=== PATIENT | male | born 1975 | race Caucasian/White ===

== ENCOUNTER 2019-08-16 20:43 | Emergency (ER) | payer OTHER ==
[2019-08-16] MEDS ORDERED: Zofran 4 MG/2 ML VIAL IV ONE (21:06)
[2019-08-16] MEDS ORDERED: MORPHINE SULFATE 4 MG INJ IV ONE (21:06)
[2019-08-16] MEDS ORDERED: Pepcid 20 MG VIAL IV ONE ×2 (21:06→21:27)
[2019-08-16] MEDS ORDERED: BENADRYL 50 MG/ML IV ONE (21:06)
[2019-08-16] MEDS ORDERED: Sodium Chloride 0.9% 1000 ML 1,000 ML IV STA (21:06)
--- NOTE | 2019-08-16 21:15 | ERPHSYRPT ---
- History of Present Illness Time Seen by Provider: 08/16/19 21:10 Historian: patient, family Exam Limitations: no limitations Physician History: pt has hx month or longer of abd pain and awaiting UGI colonoscpy w/u. but has noted increased pain this week to this date - 20 pound wt loss over months and vomiting some; lower abd pain rad to back adn vice versa; no hx trauma , no fever , no CP or sobreath but is scheduled for stress test due to abn EKG; Timing/Duration: day(s) Activities at Onset: none Quality: sharpness, stabbing, throbbing Abdominal Pain Onset Location: RLQ, LLQ, flank Pain Radiation: flank, back Severity of Pain-Max: moderate Severity of Pain-Current: moderate Modifying Factors: Improves With: movement Associated Symptoms: back Previous symptoms: different symptoms, recently seen, recently treated Allergies/Adverse Reactions: Penicillins Allergy (Verified 08/16/19 20:57) promethazine HCl [From Phenergan] Allergy (Verified 08/16/19 20:57) cyclobenzaprine HCl [From Flexeril] Adverse Reaction (Mild, Verified 08/16/19 20 :57) just cant take naproxen Adverse Reaction (Mild, Verified 08/16/19 20:57) ulcer prochlorperazine edisylate [From Compazine] Adverse Reaction (Mild, Verified 20:57) nervousness prochlorperazine maleate [From Compazine] Adverse Reaction (Mild, Verified 08/15 20:57) nervousness Home Medications: Metoprolol Tartrate 25 mg [Lopressor 25MG Tab] 100 mg PO BID 07/04/14 [ History] Gabapentin 800 mg PO TID 06/21/15 [History] Dicyclomine HCl 20 mg [Bentyl 20 mg] 1 tab PO QID 08/16/19 [History] Hx Tetanus, Diphtheria Vaccination/Date Given: No Hx Influenza Vaccination/Date Given: No Hx Pneumococcal Vaccination/Date Given: No - Review of Systems Constitutional: No Fever, No Chills Eyes: No Symptoms Ears, Nose, & Throat: No Symptoms Respiratory: No Cough, No Dyspnea Cardiac: No Chest Pain, No Edema, No Syncope Abdominal/Gastrointestinal: Abdominal Pain, Nausea, Vomiting, No Diarrhea Genitourinary Symptoms: No Dysuria Musculoskeletal: Back Pain, No Neck Pain Skin: No Rash Neurological: No Dizziness, No Focal Weakness, No Sensory Changes Psychological: No Symptoms Endocrine: No Symptoms Hematologic/Lymphatic: No Symptoms Immunological/Allergic: No Symptoms All Other Systems: Reviewed and Negative - Past Medical History Pertinent Past Medical History: Yes Neurological History: Seizures, Other ENT History: No Pertinent History Cardiac History: Hypertension, Other Respiratory History: Asthma Endocrine Medical History: No Pertinent History Musculoskeletal History: Arthritis, Degenerative Disk Disease, Fractures, Osteoarthritis GI Medical History: Colitis, GERD, Ulcer History: No Pertinent History Psycho-Social History: Anxiety, Depression, Panic Disorder, Other Male Reproductive Disorders: No Pertinent History Other Medical History: chronic back pain. cardiomegaly. schizophrenia. - Past Surgical History Past Surgical History: Yes Neuro Surgical History: No Pertinent History Cardiac: No Pertinent History Respiratory: No Pertinent History Gastrointestinal: No Pertinent History Genitourinary: No Pertinent History Musculoskeletal: Orthopedic Surgery, Other Male Surgical History: No Pertinent History Other Surgical History: tonsils, right shoulder, thumbs - Social History Smoking Status: Current every day smoker How long have you smoked: "20 years" Exposure to second hand smoke: Yes Drug Use: none Patient Lives Alone: No Significant Family History: ,  - Nursing Vital Signs Nursing Vital Signs: Initial Vital Signs Temperature 98.0 F 08/16/19 21:00 Pulse Rate 68 08/16/19 21:00 Respiratory Rate 19 08/16/19 21:00 Blood Pressure 111/73 08/16/19 21:00 O2 Sat by Pulse Oximetry 99 08/16/19 21:00 Pain Scale Pain Intensity 4 - Physical Exam General Appearance: no apparent distress, alert Eye Exam: PERRL/EOMI, eyes nml inspection Ears, Nose, Throat Exam: normal ENT inspection, pharynx normal, moist mucous membranes Neck Exam: normal inspection, non-tender, supple, full range of motion Respiratory Exam: normal breath sounds, lungs clear, No respiratory distress Cardiovascular Exam: regular rate/rhythm, normal heart sounds Gastrointestinal/Abdomen Exam: soft, No tenderness, No mass Rectal Exam: deferred Back Exam: normal inspection, normal range of motion, No CVA tenderness, No vertebral tenderness Extremity Exam: normal inspection, normal range of motion, pelvis stable Neurologic Exam: alert, oriented x 3, cooperative, normal mood/affect, nml cerebellar function, sensation nml, No motor deficits Skin Exam: normal color, warm, dry - Course Nursing assessment & vital signs reviewed: Yes EKG Interpreted by Me: Sinus Rhythm, NORMAL AXIS, NORMAL INTERVALS, Non- specific ST Changes - CT Exams Abdomen/Pelvis CT Interpretation: Tele-radiologist Report, No appendicitis (stable L5 fracture ; hepatic steatosis; vascular Dx wihtout anuerysm or blockage noted per rad) Ordered Tests: Active Orders 24 hr Category Date Time Status EKG-ER Only STAT Care 08/16/19 21:06 Active IV Insertion STAT Care 08/16/19 21:06 Active NPO (ED) STAT Care 08/16/19 21:06 Active ABDOMEN AND PELVIS W CONTRAST [CT] Stat Exams 08/16/19 21:07 Taken AMYLASE Stat Lab 08/16/19 21:46 Completed CBC W DIFF Stat Lab 08/16/19 21:46 Completed CMP Stat Lab 08/16/19 21:46 Completed LIPASE Stat Lab 08/16/19 21:46 Completed Lactic Acid Stat Lab 08/16/19 21:39 Completed TROPONIN Q3H Lab 08/16/19 21:46 Completed TROPONIN Q3H Lab 08/17/19 00:37 Received TROPONIN Q3H Lab 08/17/19 03:15 Ordered TROPONIN Q3H Lab 08/17/19 06:15 Ordered TROPONIN Q3H Lab 08/17/19 09:15 Ordered UA W/RFX UR CULTURE Stat Lab 08/16/19 21:38 Completed Medication Summary Generic Name Dose Route Start Last Admin Trade Name Freq PRN Reason Stop Dose Admin Sodium Chloride 1,000 mls @ 999 mls/hr 08/17/19 00:21 08/17/19 00:22 Sodium Chloride 0.9% 1000 Ml IV 08/17/19 01:21 999 mls/hr .Q1H1M STA Administration Discontinued Medications Generic Name Dose Route Start Last Admin Trade Name Freq PRN Reason Stop Dose Admin Diphenhydramine HCl 25 mg 08/16/19 21:06 08/16/19 21:30 Benadryl 50 Mg/Ml IV 08/16/19 21:07 25 mg STAT ONE Administration Diphenhydramine HCl Confirm 08/16/19 21:26 Benadryl 50 Mg/Ml Administered 08/16/19 21:27 Dose 50 mg .ROUTE .STK-MED ONE Diphenhydramine HCl 25 mg 08/17/19 00:07 08/17/19 00:13 Benadryl 50 Mg/Ml IV 08/17/19 00:08 25 mg STAT ONE Administration Diphenhydramine HCl Confirm 08/17/19 00:10 Benadryl 50 Mg/Ml Administered 08/17/19 00:11 Dose 50 mg .ROUTE .STK-MED ONE Famotidine 20 mg 08/16/19 21:06 08/16/19 21:31 Pepcid 20 Mg Vial IV 08/16/19 21:07 20 mg STAT ONE Administration Famotidine Confirm 08/16/19 21:27 Pepcid 20 Mg Vial Administered 08/16/19 21:28 Dose 20 mg IV .STK-MED ONE Sodium Chloride 1,000 mls @ 999 mls/hr 08/16/19 21:06 08/16/19 22:44 Sodium Chloride 0.9% 1000 Ml IV 08/16/19 22:06 Infused .Q1H1M STA Infusion Sodium Chloride Confirm 08/16/19 21:27 Sodium Chloride 0.9% 1000 Ml Administered 08/16/19 21:28 Dose 1,000 mls @ ud .ROUTE .STK-MED ONE Sodium Chloride Confirm 08/17/19 00:19 Sodium Chloride 0.9% 1000 Ml Administered 08/17/19 00:20 Dose 1,000 mls @ ud .ROUTE .STK-MED ONE Morphine Sulfate 4 mg 08/16/19 21:06 08/16/19 21:31 Morphine Sulfate 4 Mg Inj IV 08/16/19 21:07 4 mg STAT ONE Administration Morphine Sulfate Confirm 08/16/19 21:27 Morphine Sulfate 4 Mg Inj Administered 08/16/19 21:28 Dose 4 mg .ROUTE .STK-MED ONE Morphine Sulfate 10 mg 08/17/19 00:06 08/17/19 00:12 Morphine Sulfate 10 Mg/Ml IV 08/17/19 00:07 10 mg STAT ONE Administration Morphine Sulfate Confirm 08/17/19 00:10 Morphine Sulfate 10 Mg/Ml Administered 08/17/19 00:11 Dose 10 mg .ROUTE .STK-MED ONE Ondansetron HCl 4 mg 08/16/19 21:06 08/16/19 21:28 Zofran 4 Mg/2 Ml Vial IV 08/16/19 21:07 4 mg STAT ONE Administration Ondansetron HCl Confirm 08/16/19 21:26 Zofran 4 Mg/2 Ml Vial Administered 08/16/19 21:27 Dose 4 mg .ROUTE .STK-MED ONE Ondansetron HCl 4 mg 08/17/19 00:09 08/17/19 00:23 Zofran 4 Mg/2 Ml Vial IV 08/17/19 00:10 4 mg STAT ONE Administration Ondansetron HCl Confirm 08/17/19 00:21 Zofran 4 Mg/2 Ml Vial Administered 08/17/19 00:22 Dose 4 mg .ROUTE .STK-MED ONE Promethazine HCl 50 mg 08/17/19 00:07 08/17/19 00:38 Phenergan 25 Mg Inj IM 08/17/19 00:08 Not Given STAT ONE Lab/Rad Data: Laboratory Result Diagrams 08/16/19 21:46 08/16/19 21:46 Laboratory Results 08/16/19 08/16/19 08/16/19 Range/Units 21:46 21:46 21:46 WBC 9.1 (4.0-10.5) K/mm3 RBC 4.75 (4.1-5.6) M/mm3 Hgb 15.2 (12.5-18.0) gm/dl Hct 43.8 (42-50) % MCV 92.2 (78-100) fl MCH 32.0 (26-32) pg MCHC 34.7 (32-36) g/dl RDW 13.3 (11.5-14.0) % Plt Count 219 (150-450) K/mm3 MPV 8.6 (7.5-11.0) fl Gran % 57.2 (36.0-66.0) % Eos # (Auto) 0.14 (0-0.5) Absolute Lymphs (auto) 3.18 (1.0-4.6) Absolute Monos (auto) 0.54 (0.0-1.3) Lymphocytes % 35.1 (24.0-44.0) % Monocytes % 6.0 (0.0-12.0) % Eosinophils % 1.5 (0.00-5.0) % Basophils % 0.2 (0.0-0.4) % Absolute Granulocytes 5.19 (1.4-6.9) Basophils # 0.02 (0-0.4) Sodium 142 (137-145) mmol/L Potassium 3.8 (3.5-5.1) mmol/L Chloride 106 (98-107) mmol/L Carbon Dioxide 28 (22-30) mmol/L Anion Gap 11.9 (5-15) MEQ/L BUN 8 L (9-20) mg/dL Creatinine 0.68 (0.66-1.25) mg/dL Estimated GFR > 60.0 ML/MIN Glucose 82 (74-106) mg/dL Lactic Acid (0.4-2.0) Calcium 9.6 (8.4-10.2) mg/dL Total Bilirubin 0.40 (0.2-1.3) mg/dL AST 29 (17-59) U/L ALT 22 (0-50) U/L Alkaline Phosphatase 84 (38-126) U/L Troponin I < 0.012 (0.000-0.034) ng/mL Serum Total Protein 7.8 (6.3-8.2) g/dL Albumin 4.5 (3.5-5.0) g/dL Amylase 89 (30-110) U/L Lipase 107 (23-300) U/L Urine Color (YELLOW) Urine Appearance (CLEAR) Urine pH (5-6) Ur Specific [place] (1.005-1.025) Urine Protein (Negative) Urine Ketones (NEGATIVE) Urine Blood (0-5) Rip/ul Urine Nitrite (NEGATIVE) Urine Bilirubin (NEGATIVE) Urine Urobilinogen (0-1) mg/dL Ur Leukocyte Esterase (NEGATIVE) Urine WBC (Auto) (0-5) /HPF Urine RBC (Auto) (0-2) /HPF U Epithel Cells (Auto) (FEW) /HPF Urine Bacteria (Auto) (NEGATIVE) /HPF Urine Culture Reflexed (NO) Urine Glucose (NEGATIVE) mg/dL 08/16/19 08/16/19 Range/Units 21:39 21:38 WBC (4.0-10.5) K/mm3 RBC (4.1-5.6) M/mm3 Hgb (12.5-18.0) gm/dl Hct (42-50) % MCV (78-100) fl MCH (26-32) pg MCHC (32-36) g/dl RDW (11.5-14.0) % Plt Count (150-450) K/mm3 MPV (7.5-11.0) fl Gran % (36.0-66.0) % Eos # (Auto) (0-0.5) Absolute Lymphs (auto) (1.0-4.6) Absolute Monos (auto) (0.0-1.3) Lymphocytes % (24.0-44.0) % Monocytes % (0.0-12.0) % Eosinophils % (0.00-5.0) % Basophils % (0.0-0.4) % Absolute Granulocytes (1.4-6.9) Basophils # (0-0.4) Sodium (137-145) mmol/L Potassium (3.5-5.1) mmol/L Chloride (98-107) mmol/L Carbon Dioxide (22-30) mmol/L Anion Gap (5-15) MEQ/L BUN (9-20) mg/dL Creatinine (0.66-1.25) mg/dL Estimated GFR ML/MIN Glucose (74-106) mg/dL Lactic Acid 1.1 (0.4-2.0) Calcium (8.4-10.2) mg/dL Total Bilirubin (0.2-1.3) mg/dL AST (17-59) U/L ALT (0-50) U/L Alkaline Phosphatase (38-126) U/L Troponin I (0.000-0.034) ng/mL Serum Total Protein (6.3-8.2) g/dL Albumin (3.5-5.0) g/dL Amylase (30-110) U/L Lipase (23-300) U/L Urine Color YELLOW (YELLOW) Urine Appearance CLEAR (CLEAR) Urine pH 6.0 (5-6) Ur Specific [place] 1.012 (1.005-1.025) Urine Protein NEGATIVE (Negative) Urine Ketones NEGATIVE (NEGATIVE) Urine Blood NEGATIVE (0-5) Rip/ul Urine Nitrite NEGATIVE (NEGATIVE) Urine Bilirubin NEGATIVE (NEGATIVE) Urine Urobilinogen NEGATIVE (0-1) mg/dL Ur Leukocyte Esterase NEGATIVE (NEGATIVE) Urine WBC (Auto) NONE (0-5) /HPF Urine RBC (Auto) NONE (0-2) /HPF U Epithel Cells (Auto) NONE (FEW) /HPF Urine Bacteria (Auto) NONE (NEGATIVE) /HPF Urine Culture Reflexed NO (NO) Urine Glucose NEGATIVE (NEGATIVE) mg/dL - Progress Progress: improved, re-examined Progress Note: 08/17/19 01:12 pt pain much improved now and he is advised to see his PCP this am for further pain management and futher abd workup since undetected pathology may still be developing including cardiovascular and abdominal pathology- and thus the need for f/u ; [facility] of testing performed and has the capacity to make this choice; Counseled pt/family regarding: lab results, diagnosis, need for follow-up, rad results - Departure Departure Disposition: Home Clinical Impression: Hepatomegaly, Abdominal pain of unknown cause, chronic L5 compression Fx, Calcified granuloma of lung, Peripheral vascular disease Condition: Good Critical Care Time: No Referrals: KELECHI VICTOR [Primary Care Provider] - Instructions: Acute Abdomen (Belly Pain), Adult (DC), Peripheral Artery Disease and Claudication, Vertebral Compression Fracture (DC), Nonalcoholic Fatty Liver Disease (DC)
[2019-08-16] MEDS ORDERED: Zofran 4 MG/2 ML VIAL ONE (21:26)
[2019-08-16] MEDS ORDERED: BENADRYL 50 MG/ML ONE (21:26)
[2019-08-16] MEDS ORDERED: MORPHINE SULFATE 4 MG INJ ONE (21:27)
[2019-08-16] MEDS ORDERED: Sodium Chloride 0.9% 1000 ML 1,000 ML ONE (21:27)
[2019-08-16 21:48] LABS: Absolute Neutrophil Ct (ANC) 5.19 (1.4-6.9); BASOPHIL % 0.2 % (0.0-0.4); Basophil (Absolute #) 0.02 (0-0.4); Eosinophil % 1.5 % (0.00-5.0); Eosinophil (Absolute #) 0.14 (0-0.5); Hematocrit 43.8 % (42-50); Hemoglobin 15.2 gm/dl (12.5-18.0); Lymphocyte (Absolute #) 3.18 (1.0-4.6); Lymphocytes % 35.1 % (24.0-44.0); Mean Cell Volume 92.2 fl (78-100); Mean Corpuscular Hgb Concent. 34.7 g/dl (32-36); Mean Platelet Volume 8.6 fl (7.5-11.0); Monocyte (Absolute #) 0.54 (0.0-1.3); Neutrophil % 57.2 % (36.0-66.0); Platelet Count 219 K/mm3 (150-450); Red Blood Count 4.75 M/mm3 (4.1-5.6); Red Cell Distribution Width 13.3 % (11.5-14.0); White Blood Count 9.1 K/mm3 (4.0-10.5)
[2019-08-16 21:55] LABS: Appearance CLEAR (CLEAR); Bilirubin NEGATIVE (NEGATIVE); Blood NEGATIVE Ery/ul (0-5); Glucose NEGATIVE (NEGATIVE); Ketones NEGATIVE (NEGATIVE); Leukocyte Esterase NEGATIVE (NEGATIVE); Nitrite NEGATIVE (NEGATIVE); Protein,Urine Dip NEGATIVE (Negative); Specific Gravity 1.012 (1.005-1.025); Urobilinogen NEGATIVE mg/dL (0-1)
[2019-08-16 22:07] LABS: ALBUMIN 4.5 g/dL (3.5-5.0); ALKALINE PHOSPHATASE 84 U/L (38-126); AMYLASE 89 U/L (30-110); ANION GAP 11.9 MEQ/L (5-15); BLOOD UREA NITROGEN 8 mg/dL (9-20); CHLORIDE 106 mmol/L (98-107); Calcium 9.6 mg/dL (8.4-10.2); Carbon Dioxide 28 mmol/L (22-30); Creatinine 1 0.68 mg/dL (0.66-1.25); Glucose 82 mg/dL (74-106); LIPASE 107 U/L (23-300); Potassium 3.8 mmol/L (3.5-5.1); SGOT/AST 29 U/L (17-59); SGPT/ALT 22 U/L (0-50); SODIUM 142 mmol/L (137-145); Total Protein 7.8 g/dL (6.3-8.2)
[2019-08-16 23:58] VITALS: O2SAT 98
[2019-08-17] MEDS ORDERED: MORPHINE SULFATE 10 MG/ML IV ONE (00:06)
[2019-08-17] MEDS ORDERED: Phenergan 25 MG INJ IM ONE (00:07)
[2019-08-17] MEDS ORDERED: BENADRYL 50 MG/ML IV ONE (00:07)
[2019-08-17] MEDS ORDERED: Zofran 4 MG/2 ML VIAL IV ONE (00:09)
[2019-08-17] MEDS ORDERED: MORPHINE SULFATE 10 MG/ML ONE (00:10)
[2019-08-17] MEDS ORDERED: BENADRYL 50 MG/ML ONE (00:10)
[2019-08-17] MEDS ORDERED: Sodium Chloride 0.9% 1000 ML 1,000 ML ONE (00:19)
[2019-08-17] MEDS ORDERED: Sodium Chloride 0.9% 1000 ML 1,000 ML IV STA (00:21)
[2019-08-17] MEDS ORDERED: Zofran 4 MG/2 ML VIAL ONE (00:21)
[2019-08-17 01:00] VITALS: BP 125/81; PULSE 57
--- NOTE | 2019-08-17 08:43 | XRAY ---
Indication: Bilateral back/flank pain. Multiple contiguous axial images obtained through the abdomen and pelvis using 80 cc Isovue 370 contrast only. Comparison: December 15, 2012. Lung bases demonstrates bilateral dependent atelectasis and right middle lobe calcified granuloma. No infiltrate or effusion. Heart is not enlarged. Noncontrasted stomach and bowel loops appear nonobstructed. Normal appendix. No free fluid/air. Mild fatty liver without focal solid/cystic mass. Remaining liver, gallbladder, pancreas, spleen, adrenal glands, kidneys, ureters, and bladder appear unremarkable. Aorta is normal in course and caliber. No AAA or pathologic retroperitoneal lymphadenopathy Osseous structures intact again with L5 Schmorl node. Impression: 1. Fatty liver and right middle lobe calcified granuloma. 2. Remaining CT abdomen/pelvis with contrast exam is negative. Comment: Preliminary interpretation was made by [facility]. No critical discrepancy.
== END 2019-08-17 01:42 | disposition home or self-care (01) ==
LOC: ED 20:43
DX: R16.0 Hepatomegaly, not elsewhere classified (principal); M48.56XA Collapsed vertebra, not elsewhere classified, lumbar region, initial encounter for fracture; J84.10 Pulmonary fibrosis, unspecified; I73.9 Peripheral vascular disease, unspecified; R10.31 Right lower quadrant pain; R10.32 Left lower quadrant pain; R10.9 Unspecified abdominal pain; Z79.899 Other long term (current) drug therapy; R11.2 Nausea with vomiting, unspecified; I10 Essential (primary) hypertension; Z72.0 Tobacco use
CPT/HCPCS: 36000; 36415; 74177; 80053; 81001; 82150; 83605; 83690; 84484; 85025; 93005; 96360; 96361; 96374; 96375; 96376; 99285; J1200; J2270; J2405

== ENCOUNTER 2020-02-06 17:40 | Emergency (ER) | payer OTHER ==
[2020-02-06] MEDS ORDERED: MORPHINE SULFATE 4 MG INJ IM ONE ×2 (18:11→19:25)
[2020-02-06] MEDS ORDERED: MORPHINE SULFATE 4 MG INJ ONE ×2 (18:14→19:33)
--- NOTE | 2020-02-06 18:15 | ERPHSYRPT ---
- History of Present Illness Source: patient Exam Limitations: no limitations Patient Subjective Stated Complaint: Pt c/o pain to right shoulder for past week with acutely worse last night. States cant raise arm above head. Stabbing pain with movement. Has had two surgeries on that shoulder-last 2006. Triage Nursing Assessment: Right radial pulse present and strong. Cap refill <3sec. Surgery scar to anterior right shoulder. No deformity,swelling, or bruising present. Occurred: yesterday Method of Injury: unknown Quality: sharpness, stabbing Severity of Pain-Max: severe Severity of Pain-Current: severe Extremities Pain Location: shoulder: right Modifying Factors: Improves With: immobilization, movement Associated Symptoms: none Hx Tetanus, Diphtheria Vaccination/Date Given: No Hx Influenza Vaccination/Date Given: No Hx Pneumococcal Vaccination/Date Given: No <LISSA FRENCH - Last Filed: 02/06/20 18:11> <MIGUEL DEE - Last Filed: 02/06/20 19:29> - History of Present Illness Time Seen by Provider: 02/06/20 18:00 Physician History: 45 years old male with a history of multiple right shoulder surgeries in the past presented in the ER with worsening shoulder pain since last night. Patient described it as 10/10 intensity sharp pain aggravated with movements of right shoulder and partial relief with being still and holding right upper extremity closer to the chest. Patient report he feels popping sound with movements of shoulder. Denies any fall or trauma or twisting movements. No swelling of shoulder. Reports pain similar to previous episodes needing surgical intervention. (LISSA FRENCH) Allergies/Adverse Reactions: Penicillins Allergy (Verified 02/06/20 18:10) promethazine HCl [From Phenergan] Allergy (Verified 02/06/20 18:10) cyclobenzaprine HCl [From Flexeril] Adverse Reaction (Mild, Verified 02/06/20 18:10) just cant take naproxen Adverse Reaction (Mild, Verified 02/06/20 18:10) ulcer prochlorperazine edisylate [From Compazine] Adverse Reaction (Mild, Verified 02/06/20 18:10) nervousness prochlorperazine maleate [From Compazine] Adverse Reaction (Mild, Verified 02/06/20 18:10) nervousness Home Medications: Metoprolol Tartrate 25 mg [Lopressor 25MG Tab] 100 mg PO BID 07/04/14 [History] Gabapentin 800 mg PO TID 06/21/15 [History] Dicyclomine HCl 20 mg [Bentyl 20 mg] 1 tab PO QID 08/16/19 [History] Oxycodone HCl 5 mg PO BID 02/06/20 [History] Travel Risk - International Travel Have you traveled outside of the country in past 3 weeks: No - Coronavirus Screening Are you exhibiting any of the following symptoms?: No Close contact with a COVID-19 positive Pt in past 14-21 Days: No <LISSA FRENCH - Last Filed: 02/06/20 18:11> - Review of Systems Constitutional: No Symptoms Eyes: No Symptoms Ears, Nose, & Throat: No Symptoms Respiratory: No Symptoms Cardiac: No Symptoms Abdominal/Gastrointestinal: No Symptoms Genitourinary Symptoms: No Symptoms Musculoskeletal: Arthralgias, Back Pain, Joint Pain Skin: No Symptoms Neurological: No Symptoms Psychological: No Symptoms Endocrine: No Symptoms Hematologic/Lymphatic: No Symptoms <LISSA FRENCH - Last Filed: 02/06/20 18:11> - Past Medical History Pertinent Past Medical History: Yes Neurological History: Seizures, Other ENT History: No Pertinent History Cardiac History: Hypertension, Other Respiratory History: Asthma Endocrine Medical History: No Pertinent History Musculoskeletal History: Arthritis, Degenerative Disk Disease, Fractures, Osteoarthritis GI Medical History: Colitis, GERD, Ulcer History: No Pertinent History Psycho-Social History: Anxiety, Depression, Panic Disorder, Other Male Reproductive Disorders: No Pertinent History Other Medical History: chronic back pain. cardiomegaly. schizophrenia. - Past Surgical History Past Surgical History: Yes Neuro Surgical History: No Pertinent History Cardiac: No Pertinent History Respiratory: No Pertinent History Gastrointestinal: No Pertinent History Genitourinary: No Pertinent History Musculoskeletal: Orthopedic Surgery, Other Male Surgical History: No Pertinent History Other Surgical History: tonsils, right shoulder, thumbs, left leg - Social History Smoking Status: Current every day smoker How long have you smoked: "20 years" Exposure to second hand smoke: Yes Drug Use: none Patient Lives Alone: No Significant Family History: ,  <LISSA FRENCH - Last Filed: 02/06/20 18:11> - Physical Exam General Appearance: no apparent distress, alert Eyes, Ears, Nose, Throat Exam: normal ENT inspection Neck Exam: normal inspection, non-tender, supple, full range of motion Cardiovascular/Respiratory Exam: chest non-tender, normal breath sounds, regular rate/rhythm Back Exam: normal inspection, normal range of motion Shoulder Exam: limited ROM (Right shoulder with reproducible pain with movements, cannot lift above shoulder line. Distal neurovascular well intact.), pain Elbow/Forearm Exam: normal inspection Wrist Exam: normal inspection Hand Exam: normal inspection Neuro/Tendon Exam: normal sensation Mental Status Exam: alert, oriented x 3, cooperative, agitated Skin Exam: normal color SpO2 Interpretation: normal O2 Delivery: Room Air <LISSA FRENCH - Last Filed: 02/06/20 18:11> - Nursing Vital Signs Nursing Vital Signs: Initial Vital Signs Temperature 96.3 F 02/06/20 17:55 Pulse Rate 64 02/06/20 17:55 Respiratory Rate 20 02/06/20 17:55 Blood Pressure 111/69 02/06/20 17:55 Pain Scale Pain Intensity 10 - Course Nursing assessment & vital signs reviewed: Yes <MIGUEL DEE - Last Filed: 02/06/20 19:29> Ordered Tests: Active Orders 24 hr Category Date Time Status Sling Application STAT Care 02/06/20 19:27 Ordered SHOULDER Stat Exams 02/06/20 18:54 Taken Medication Summary Discontinued Medications Generic Name Dose Route Start Last Admin Trade Name Freq PRN Reason Stop Dose Admin Lorazepam 1 mg 02/06/20 19:26 Ativan 2 Mg/1 Ml Vial IM 02/06/20 19:27 STAT ONE Morphine Sulfate 4 mg 02/06/20 18:11 02/06/20 18:17 Morphine Sulfate 4 Mg Inj IM 02/06/20 18:12 4 mg STAT ONE Administration Morphine Sulfate Confirm 02/06/20 18:14 Morphine Sulfate 4 Mg Inj Administered 02/06/20 18:15 Dose 4 mg .ROUTE .STK-MED ONE Morphine Sulfate 4 mg 02/06/20 19:25 Morphine Sulfate 4 Mg Inj IM 02/06/20 19:26 STAT ONE Ondansetron HCl 4 mg 02/06/20 18:55 02/06/20 18:58 Zofran Odt 4 Mg PO 02/06/20 18:56 4 mg STAT ONE Administration Ondansetron HCl Confirm 02/06/20 18:56 Zofran Odt 4 Mg Administered 02/06/20 18:57 Dose 4 mg .ROUTE .STK-MED ONE - Progress Progress: improved, pain not gone completely, re-examined Counseled pt/family regarding: diagnosis, need for follow-up, rad results <MIGUEL DEE - Last Filed: 02/06/20 19:29> - Progress Progress Note: 02/06/20 19:24 X-ray of the right shoulder reveals no evidence of acute fracture or dislocation. (MIGUEL DEE) <LISSA FRENCH - Last Filed: 02/06/20 18:11> - Departure Departure Disposition: Home Critical Care Time: No <MIGUEL DEE - Last Filed: 02/06/20 19:29> - Departure Clinical Impression: Right shoulder pain Condition: Stable Referrals: KELECHI VICTOR [Primary Care Provider] - Additional Instructions: Take your medication as prescribed. Follow-up with your pain specialist, your primary care physician and/or your orthopedic surgeon for further control of your pain Prescriptions: Carisoprodol 350 mg [Soma 350 mg] 350 mg PO Q8H PRN PRN #10 tablet PRN Reason: Muscle Spasms
[2020-02-06] MEDS ORDERED: ZOFRAN ODT 4 MG PO ONE (18:55)
[2020-02-06] MEDS ORDERED: ZOFRAN ODT 4 MG ONE (18:56)
[2020-02-06] MEDS ORDERED: Ativan 2 MG/1 ML VIAL IM ONE (19:26)
[2020-02-06] MEDS ORDERED: Ativan 2 MG/1 ML VIAL ONE (19:33)
[2020-02-06 20:12] VITALS: BP 96/64; PULSE 77; O2SAT 99
--- NOTE | 2020-02-06 21:04 | XRAY ---
Indication: Pain. History of chronic dislocation. Comparison: March 12, 2014. 3 view right shoulder again demonstrates small osteophyte emanating from the humeral neck and a few right lung calcified granulomas. No new/acute bony, articular, or soft tissue abnormalities.
== END 2020-02-06 20:00 | disposition home or self-care (01) ==
LOC: ED 17:40
DX: M25.511 Pain in right shoulder (principal)
CPT/HCPCS: 73030; 96372; 99284; J2060; J2270; Q0162

== ENCOUNTER 2020-07-09 13:27 | Emergency (ER) | payer OTHER ==
[2020-07-09] MEDS ORDERED: TORAdol 30 mg Injection IM ONE (13:57)
[2020-07-09] MEDS ORDERED: Norflex 60 MG/2 ML IM ONE (14:02)
[2020-07-09] MEDS ORDERED: TORAdol 30 mg Injection ONE (14:05)
[2020-07-09] MEDS ORDERED: Norflex 60 MG/2 ML ONE (14:05)
--- NOTE | 2020-07-09 14:06 | ERPHSYRPT ---
- History of Present Illness Time Seen by Provider: 07/09/20 14:02 Source: patient Exam Limitations: no limitations Patient Subjective Stated Complaint: Pt states that for the past 3 weeks his left forearm from his elbow down hurts Triage Nursing Assessment: Pt was brought to the ER by his brother, yaniv diggs, denies injury to arm, denies repetive movment, pulses normal, rates pain 9/10, no visible injuries, skin n/w/d, no difficulties with strength Physician History: Pt states that for the past 3 weeks his left forearm from his elbow down hurts. No history of any injury or fall patient has a history of narcotic drug abuse in the past. Occurred: last week Method of Injury: unknown Quality: cramping Severity of Pain-Max: mild Severity of Pain-Current: mild Extremities Pain Location: forearm: left Allergies/Adverse Reactions: Penicillins Allergy (Verified 07/09/20 13:39) promethazine HCl [From Phenergan] Allergy (Verified 07/09/20 13:39) cyclobenzaprine HCl [From Flexeril] Adverse Reaction (Mild, Verified 07/09/20 13:39) just cant take naproxen Adverse Reaction (Mild, Verified 07/09/20 13:39) ulcer prochlorperazine edisylate [From Compazine] Adverse Reaction (Mild, Verified 07/09/20 13:39) nervousness prochlorperazine maleate [From Compazine] Adverse Reaction (Mild, Verified 07/09/20 13:39) nervousness Home Medications: Metoprolol Tartrate 25 mg [Lopressor 25MG Tab] 100 mg PO BID 07/04/14 [History] Gabapentin 800 mg PO QID 06/21/15 [History] Dicyclomine HCl 20 mg [Bentyl 20 mg] 1 tab PO QID 08/16/19 [History] Oxycodone HCl 10 mg PO BID 02/06/20 [History] Clopidogrel Bisulfate 75 mg [PLAVIX 75 MG Tablet] 75 mg PO DAILY 07/09/20 [History] Hydroxyzine HCl 25 mg [Atarax 25 mg] 1 - 2 tab PO Q6H PRN 07/09/20 [History] OLANZapine [Olanzapine] 10 mg PO HS 07/09/20 [History] Venlafaxine HCl ER 75 mg [Effexor XR 75 MG] 225 mg PO DAILY 07/09/20 [History] Hx Tetanus, Diphtheria Vaccination/Date Given: No Hx Influenza Vaccination/Date Given: No Hx Pneumococcal Vaccination/Date Given: No Travel Risk - International Travel Have you traveled outside of the country in past 3 weeks: No - Coronavirus Screening Are you exhibiting any of the following symptoms?: No Close contact with a COVID-19 positive Pt in past 14-21 Days: No - Review of Systems Constitutional: No Symptoms Eyes: No Symptoms Ears, Nose, & Throat: No Symptoms Respiratory: No Symptoms Cardiac: No Symptoms Abdominal/Gastrointestinal: No Symptoms Genitourinary Symptoms: No Symptoms Musculoskeletal: Other (left forearm pain. ), No Fall - Past Medical History Pertinent Past Medical History: Yes Neurological History: Seizures ENT History: No Pertinent History Cardiac History: High Cholesterol, Hypertension Respiratory History: Asthma, COPD Endocrine Medical History: Other Musculoskeletal History: Degenerative Disk Disease, Osteoarthritis GI Medical History: Colitis, GERD, Ulcer History: No Pertinent History Psycho-Social History: Anxiety, Depression, Panic Disorder, Other Male Reproductive Disorders: No Pertinent History Other Medical History: FATTY LIVER DISEASE, SCHIZOPHRENIA, DEPRESSION, ANXIETY. SX HX 2 SURGERIES RIGHT SHOULDER AND MULTIPLE DISLOCATIONS RIGHT SHOULDER. MOST RECENT SURGERY 2006. HX OF 2 SURGERIES LEFT LEG DUE TO BLOOD CLOTS (HAS CADAVER VEIN) - Past Surgical History Past Surgical History: Yes Neuro Surgical History: No Pertinent History Cardiac: No Pertinent History Respiratory: No Pertinent History Gastrointestinal: No Pertinent History Genitourinary: No Pertinent History Musculoskeletal: Orthopedic Surgery, Other Male Surgical History: No Pertinent History Other Surgical History: tonsils, right shoulder, thumbs, left leg - Social History Smoking Status: Current every day smoker How long have you smoked: "20 years" Exposure to second hand smoke: Yes Drug Use: none Patient Lives Alone: No Significant Family History: ,  - Nursing Vital Signs Nursing Vital Signs: Initial Vital Signs Temperature 98.2 F 07/09/20 13:30 Pulse Rate 73 07/09/20 13:30 Blood Pressure 124/84 07/09/20 13:30 O2 Sat by Pulse Oximetry 99 07/09/20 13:30 Pain Scale Pain Intensity 8 - Physical Exam General Appearance: no apparent distress Eyes, Ears, Nose, Throat Exam: normal ENT inspection Neck Exam: normal inspection Cardiovascular/Respiratory Exam: chest non-tender Abdominal Exam: non-tender Back Exam: normal inspection Shoulder Exam: normal inspection Elbow/Forearm Exam: no evidence of injury, normal ROM, pain, soft tissue tenderness, No abrasions, No asymmetry, No bone tenderness, No deformity, No ecchymosis, No limited ROM, No swelling Wrist Exam: normal inspection Hand Exam: normal inspection SpO2: 99 - Course Nursing assessment & vital signs reviewed: Yes Ordered Tests: Medication Summary Discontinued Medications Generic Name Dose Route Start Last Admin Trade Name Alis PRN Reason Stop Dose Admin Ketorolac Tromethamine 60 mg 07/09/20 13:57 07/09/20 14:06 Toradol 30 Mg Injection IM 07/09/20 13:58 60 mg STAT ONE Administration Ketorolac Tromethamine Confirm 07/09/20 14:05 Toradol 30 Mg Injection Administered 07/09/20 14:06 Dose 60 mg .ROUTE .STK-MED ONE Orphenadrine Citrate 60 mg 07/09/20 14:02 07/09/20 14:07 Norflex 60 Mg/2 Ml IM 07/09/20 14:03 60 mg STAT ONE Administration Orphenadrine Citrate Confirm 07/09/20 14:05 Norflex 60 Mg/2 Ml Administered 07/09/20 14:06 Dose 60 mg .ROUTE .STK-MED ONE - Progress Progress: improved, pain not gone completely Counseled pt/family regarding: diagnosis, need for follow-up - Departure Departure Disposition: Home Clinical Impression: Left forearm pain Condition: Stable Critical Care Time: No Referrals: CRISTY CALVO MD [Primary Care Provider] - Follow Up with PCP/3 days Additional Instructions: Discharge/Care Plan LAKHWINDER BARGER was seen on 07/09/20 in the Emergency Room. The patient was counseled regarding Diagnosis,Lab results, Imaging studies, need for follow up and when to return to the Emergency Room. Prescriptions given: Discharge Note I have spoken with the patient and/or caregivers. I have explained the patient's condition, diagnosis and treatment plan based on the information available to me at this time. I have answered the patient's and/or caregiver's questions and addressed any concerns. The patient and/or caregivers have as good understanding of the patient's diagnosis, condition and treatment plan as can be expected at this point. The vital signs have been stable. The patient's condition is stable and appropriate for discharge from the emergency department. The patient will pursue further outpatient evaluation with the primary care physician or other designated or consulting physician as outlined in the discharge instructions. The patient and/or caregivers are agreeable to this plan of care and follow-up instructions have been explained in detail. The patient and/or caregivers have received these instruction. The patient/and or caregivers are aware that any significant change in condition or worsening of symptoms should prompt an immediate return to this or the closest emergency department or call 911. LAKHWINDER BARGER was seen on 07/09/20 n the Emergency Room. At that time you were treated for an emergent condition, during your visit Laboratory, Radiology and/or other procedures may have been ordered. It is very important that you follow-up with your Primary Care Physician CRISTY CALVO within the next 24-48 hours to review your Emergency Room visit and the final results of testing that was ordered. Some test results such as Urine Cultures, Blood Cultures, and other cultures if ordered will not be finalized for 24-48 hours. If you do not have a Primary Care Provider please call the medical records department at [phone] to obtain a copy of your results or you may sign into our patient portal to obtain these results by visiting us @ [email or web address] and completing the following steps: 1. Click on the Patient Portal link 2. Click the Patient Self Enrollment Link to complete the enrollment form and entering your 3. Once the enrollment form is completed you will receive an email with a temporary ID and password at the email address you provided. 4. Next choose a user name and password. Your user name must be at least 4 characters long and your password must be at least 4 characters long. 5. Choose a security question from the list and provide your answer to the question. If you already have signed into the Health Portal you may access your Health Care Information 24/12 by the following steps: 1. Login to our website @ [email or web address] 2. Enter your original user name and password. FAQS The [facility] Health Portal is an online tool that contains your Lab Results, Radiology Reports, Visit History, Discharge Instructions and Health Summary Lab and Radiology Results will not be available for 72 hours on the portal. The Portal is a secure site, passwords are encryted and URLs are re-written so they cannot be copied and pasted. You and authorized family members are the only ones who can access your Portal. Also there is a timeout feature that protects your information if you leave the Portal page open. If you have technical difficulty please use the Contact Us link on the page this will allow you to submit any questions you have regarding the Portal or you may contact the Medical Record Department at [phone]. Prescriptions: Orphenadrine Citrate 100 mg [Norflex 100 MG Tablet] 100 mg PO BID #20 tab
[2020-07-09 14:30] VITALS: BP 121/78; PULSE 69; O2SAT 98
== END 2020-07-09 14:30 | disposition home or self-care (01) ==
LOC: ED 13:27
DX: M79.632 Pain in left forearm (principal)
CPT/HCPCS: 96372; 99284; J1885; J2360

== ENCOUNTER 2022-07-03 14:49 | Emergency (ER) | payer OTHER ==
--- NOTE | 2022-07-03 14:58 | ERPHSYRPT ---
- History of Present Illness Time Seen by Provider: 07/03/22 14:58 Historian: patient Exam Limitations: no limitations Physician History: This is a 47-year-old white male patient who was seen at the family practice clinic by nurse practitioner with a complaint of left anterior chest pain that radiates into his left axilla and left posterior shoulder and associated shor tness of breath that has progressively worsened over the last week. Patient does have a history of COPD, hypertension and DVT and is on Plavix as well as a antiplatelet medication. Patient was sent to the hospital to have labs obtained as well as a chest x-ray and twelve-lead EKG. I reviewed the report of the chest x-ray that was done prior to arrival to the emergency department but was done today. I also reviewed and interpreted the twelve-lead EKG from 03/15/2020 and compared this twelve-lead EKG to the twelve-lead EKG that was done by respiratory therapy on 07/03 2022 at 1439 and compared both of those twelve-lead EKGs to the twelve-lead EKG that was performed in our emergency department on 07/03/2022 at 1450. Based on the above history, I will be reviewing the lab results from the blood that was taken just prior to arrival to the emergency department. The results are pending at this time. Additional history was obtained from old records from the hospital. Timing/Duration: week(s) (1) Activities at Onset: none Quality: pressure (Left anterior chest) Location: other (Left anterior chest) Chest Pain Radiation: arm (Left axilla and left posterior shoulder) Severity of Pain-Max: mild (To moderate) Severity of Pain-Current: mild (To moderate) Associated Symptoms: shortness of breath Prior Chest Pain/Cardiac Workup: no prior chest pain (Patient has no diagnosed cardiac history) Nitro Today/Relief: no nitro taken today Aspirin Treatment Today: no aspirin today (Patient is on Plavix and an antiplatelet medication) Allergies/Adverse Reactions: Penicillins Allergy (Verified 07/03/22 15:04) promethazine HCl [From Phenergan] Allergy (Verified 07/03/22 15:04) cyclobenzaprine HCl [From Flexeril] Adverse Reaction (Mild, Verified 07/03/22 15:04) just cant take naproxen Adverse Reaction (Mild, Verified 07/03/22 15:04) ulcer prochlorperazine edisylate [From Compazine] Adverse Reaction (Mild, Verified 07/03/22 15:04) nervousness prochlorperazine maleate [From Compazine] Adverse Reaction (Mild, Verified 07/03/22 15:04) nervousness Home Medications: Metoprolol Tartrate 25 mg [Lopressor 25MG Tab] 100 mg PO BID 07/04/14 [History] Gabapentin 800 mg PO QID 06/21/15 [History] Dicyclomine HCl 20 mg [Bentyl 20 mg] 1 tab PO QID 08/16/19 [History] Clopidogrel Bisulfate [PLAVIX 75 MG Tablet] 75 mg PO DAILY 07/09/20 [History] Aspirin EC 81 mg [Ecotrin 81 mg] 81 mg PO DAILY 07/03/22 [History] Buprenorphine HCl/Naloxone HCl [Buprenorphine-Nalox 8-2 mg Tab] 2 tab SL DAILY 07/03/22 [History] Meloxicam 15 mg [Meloxicam 15 MG] 15 mg PO DAILY 07/03/22 [History] Montelukast Sodium 10 mg [Singulair 10 MG] 10 mg PO DAILY 07/03/22 [History] Omeprazole 20 mg PO BID 07/03/22 [History] cilostazoL [Cilostazol] 50 mg PO BID 07/03/22 [History] Hx Tetanus, Diphtheria Vaccination/Date Given: No Hx Influenza Vaccination/Date Given: No Hx Pneumococcal Vaccination/Date Given: No Travel Risk - International Travel Have you traveled outside of the country in past 3 weeks: No - Coronavirus Screening Are you exhibiting any of the following symptoms?: No Close contact with a COVID-19 positive Pt in past 14-21 Days: No - Review of Systems Constitutional: No Symptoms Eyes: No Symptoms Ears, Nose, & Throat: No Symptoms Respiratory: Dyspnea Cardiac: Chest Pain Abdominal/Gastrointestinal: No Symptoms Genitourinary Symptoms: No Symptoms Musculoskeletal: No Symptoms Skin: No Symptoms Neurological: No Symptoms Psychological: No Symptoms Endocrine: No Symptoms Hematologic/Lymphatic: No Symptoms Immunological/Allergic: No Symptoms All Other Systems: Reviewed and Negative - Past Medical History Pertinent Past Medical History: Yes Neurological History: Seizures ENT History: No Pertinent History Cardiac History: High Cholesterol, Hypertension Respiratory History: Asthma, COPD Endocrine Medical History: Other Musculoskeletal History: Degenerative Disk Disease, Osteoarthritis GI Medical History: Colitis, GERD, Ulcer History: No Pertinent History Psycho-Social History: Anxiety, Depression, Panic Disorder, Other Male Reproductive Disorders: No Pertinent History Other Medical History: FATTY LIVER DISEASE, SCHIZOPHRENIA, DEPRESSION, ANXIETY. SX HX 2 SURGERIES RIGHT SHOULDER AND MULTIPLE DISLOCATIONS RIGHT SHOULDER. MOST RECENT SURGERY 2006. HX OF 2 SURGERIES LEFT LEG DUE TO BLOOD CLOTS (HAS CADAVER VEIN) - Past Surgical History Past Surgical History: Yes Neuro Surgical History: No Pertinent History Cardiac: No Pertinent History Respiratory: No Pertinent History Gastrointestinal: No Pertinent History Genitourinary: No Pertinent History Musculoskeletal: Orthopedic Surgery, Other Male Surgical History: No Pertinent History Other Surgical History: tonsils, right shoulder, thumbs, left leg - Social History Smoking Status: Current every day smoker How long have you smoked: "20 years" Exposure to second hand smoke: Yes Drug Use: none Patient Lives Alone: No Significant Family History: ,  - Nursing Vital Signs Nursing Vital Signs: Initial Vital Signs Pulse Rate 72 07/03/22 15:50 Respiratory Rate 20 07/03/22 15:50 Blood Pressure 103/85 07/03/22 15:50 O2 Sat by Pulse Oximetry 95 07/03/22 15:50 Pain Scale Pain Intensity 3 - Physical Exam General Appearance: no apparent distress, alert, anxiety Eye Exam: PERRL/EOMI, eyes nml inspection Ears, Nose, Throat Exam: normal ENT inspection, moist mucous membranes Neck Exam: normal inspection, non-tender, supple, full range of motion Respiratory Exam: normal breath sounds, chest tenderness (Left anterior chest with radiates into the left axilla and left posterior shoulder. He describes as a pressure), lungs clear, airway intact, No respiratory distress Cardiovascular Exam: regular rate/rhythm, normal heart sounds, normal peripheral pulses Gastrointestinal/Abdomen Exam: soft, normal bowel sounds, No tenderness Rectal Exam: not done Back Exam: normal inspection, normal range of motion, No CVA tenderness Extremity Exam: normal inspection, normal range of motion, pelvis stable Neurologic Exam: alert, oriented x 3, cooperative, basket weaver II-XII nml as tested, normal mood/affect, nml cerebellar function, nml station & gait, sensation nml Skin Exam: normal color, warm, dry Lymphatic Exam: No adenopathy SpO2 Interpretation: normal O2 Delivery: Room Air - Course Nursing assessment & vital signs reviewed: Yes EKG Interpreted by Me: RATE (57), Sinus Rhythm, NORMAL AXIS, NORMAL INTERVALS, NORMAL QRS, Non-specific ST Changes, Other (No evidence of acute ischemic changes on today's EKG. This EKG was interpreted by me. I compared this to twelve-lead EKG that was performed today at 1439. I also compared this twelve- lead EKG to an EKG that was performed on 03/15/2020.) Ordered Tests: Active Orders 24 hr Category Date Time Status CHEST WITH CONTRAST [CT] Stat Exams 07/03/22 15:16 Completed CBC W DIFF Stat Lab 07/03/22 15:29 Completed CMP Stat Lab 07/03/22 15:29 Completed NT PRO BNP Stat Lab 07/03/22 15:29 Completed Medication Summary Discontinued Medications Generic Name Dose Route Start Last Admin Trade Name Freq PRN Reason Stop Dose Admin Lorazepam 1 mg 07/03/22 15:16 07/03/22 15:30 Lorazepam 2 Mg/1 Ml 2 Mg Vial IV 07/03/22 15:17 1 mg STAT ONE Administration Lorazepam Confirm 07/03/22 15:23 Lorazepam 2 Mg/1 Ml 2 Mg Vial Administered 07/03/22 15:24 Dose 2 mg .ROUTE .Xenon Arc-MED ONE Lab/Rad Data: Laboratory Result Diagrams 07/03/22 15:29 07/03/22 15:29 Laboratory Results 07/03/22 07/03/22 Range/Units 15:29 15:29 WBC 8.3 (4.0-10.5) x10^3/uL RBC 4.76 (4.1-5.6) x10^6/uL Hgb 14.5 (12.5-18.0) g/dL Hct 44.2 (42-50) % MCV 92.9 (78-100) fL MCH 30.5 (26-32) pg MCHC 32.8 (32-36) g/dL RDW 13.1 (11.5-14.0) % Plt Count 210 (150-450) x10^3/uL MPV 8.5 (7.5-11.0) fL Gran % 62.0 (36.0-66.0) % Immature Gran % (Auto) 0.4 (0.00-0.4) % Nucleat RBC Rel Count 0.0 (0.00-0.1) % Eos # (Auto) 0.29 (0-0.5) x10^3/uL Immature Gran # (Auto) 0.03 (0.00-0.03) x10^3u/L Absolute Lymphs (auto) 2.19 (1.0-4.6) x10^3/uL Absolute Monos (auto) 0.59 (0.0-1.3) x10^3/uL Absolute Nucleated RBC 0.00 (0.00-0.01) x10^3u/L Lymphocytes % 26.5 (24.0-44.0) % Monocytes % 7.2 (0.0-12.0) % Eosinophils % 3.5 (0.00-5.0) % Basophils % 0.4 (0.0-0.4) % Absolute Granulocytes 5.12 (1.4-6.9) x10^3/uL Basophils # 0.03 (0-0.4) x10^3/uL Sodium 139 (137-145) mmol/L Potassium 4.4 (3.5-5.1) mmol/L Chloride 106 (98-107) mmol/L Carbon Dioxide 28 (22-30) mmol/L Anion Gap 8.8 (5-15) MEQ/L BUN 12 (9-20) mg/dL Creatinine 0.71 (0.66-1.25) mg/dL Estimated GFR > 60.0 ML/MIN Glucose 106 (74-106) mg/dL Calcium 9.2 (8.4-10.2) mg/dL Total Bilirubin 0.30 (0.2-1.3) mg/dL AST 56 (17-59) U/L ALT 27 (0-50) U/L Alkaline Phosphatase 77 (38-126) U/L NT-Pro-B Natriuret Pep 123 (0-450) pg/mL Serum Total Protein 7.6 (6.3-8.2) g/dL Albumin 4.3 (3.5-5.0) g/dL - Progress Progress: improved Air Movement: good Progress Note: 07/03/22 16:56 CTA of the chest shows no acute cardiopulmonary abnormalities. There is no evidence of any pulmonary embolus. Medical decision making: Based on the patient history, physical exam and additional history obtained from the patient's old charts and labs that were reviewed upon arrival to the emergency department, the patient's medical issues over moderate complexity. I reviewed old charts and laboratory results and based on those reviews and on the above history, physical exam and vital signs, I ordered the work-up in the emergency department that included placement of intravenous line, CTA of the chest, additional lab work and twelve-lead EKG which I interpreted and compared to old twelve-lead EKGs. The patient's work-up did not show any acute medical issues. I discussed the results with the patient. We also formulated a plan for him to continue his medication as prescribed and to follow-up with his outpatient primary care provider for further evaluation and management. Blood Culture(s) Obtained: No Antibiotics given: No Counseled pt/family regarding: lab results, diagnosis, need for follow-up, rad results - Departure Departure Disposition: Home Clinical Impression: Non-cardiac chest pain, Dyspnea Condition: Stable Critical Care Time: No Referrals: MÓNICA MCGHEE MD [Primary Care Provider] - Follow up/PCP as directed Additional Instructions: Take your medication as prescribed. Follow-up with your primary care provider for further evaluation and management.
[2022-07-03] MEDS ORDERED: Ativan 2 MG/1 ML VIAL IV ONE (15:16)
[2022-07-03] MEDS ORDERED: Ativan 2 MG/1 ML VIAL ONE (15:23)
[2022-07-03 15:37] LABS: Absolute Neutrophil Ct (ANC) 5.12 x10^3/uL (1.4-6.9); BASOPHIL % 0.4 % (0.0-0.4); Basophil (Absolute #) 0.03 x10^3/uL (0-0.4); Eosinophil % 3.5 % (0.00-5.0); Eosinophil (Absolute #) 0.29 x10^3/uL (0-0.5); Hematocrit 44.2 % (42-50); Hemoglobin 14.5 g/dL (12.5-18.0); IMMATURE GRAN # 0.03 x10^3u/L (0.00-0.03); IMMATURE GRAN % 0.4 % (0.00-0.4); Lymphocyte (Absolute #) 2.19 x10^3/uL (1.0-4.6); Lymphocytes % 26.5 % (24.0-44.0); Mean Cell Volume 92.9 fL (78-100); Mean Corpuscular Hemoglobin 30.5 pg (26-32); Mean Corpuscular Hgb Concent. 32.8 g/dL (32-36); Mean Platelet Volume 8.5 fL (7.5-11.0); Monocyte (Absolute #) 0.59 x10^3/uL (0.0-1.3); Monocytes % 7.2 % (0.0-12.0); Platelet Count 210 x10^3/uL (150-450); Red Blood Count 4.76 x10^6/uL (4.1-5.6); Red Cell Distribution Width 13.1 % (11.5-14.0); White Blood Count 8.3 x10^3/uL (4.0-10.5)
[2022-07-03 15:53] LABS: ALBUMIN 4.3 g/dL (3.5-5.0); ALKALINE PHOSPHATASE 77 U/L (38-126); ANION GAP 8.8 MEQ/L (5-15); BLOOD UREA NITROGEN 12 mg/dL (9-20); CHLORIDE 106 mmol/L (98-107); Calcium 9.2 mg/dL (8.4-10.2); Carbon Dioxide 28 mmol/L (22-30); Creatinine 1 0.71 mg/dL (0.66-1.25); EST GLOMERULAR FILTRATION RATE > 60.0 ML/MIN; Glucose 106 mg/dL (74-106); NT PRO BNP 123 pg/mL (0-450); Potassium 4.4 mmol/L (3.5-5.1); SGOT/AST 56 U/L (17-59); SGPT/ALT 27 U/L (0-50); SODIUM 139 mmol/L (137-145); Total Protein 7.6 g/dL (6.3-8.2)
[2022-07-03 16:20] VITALS: BP 117/79; PULSE 70; O2SAT 96
--- NOTE | 2022-07-03 16:44 | XRAY ---
Indication: Short of breath and chest pain. History DVT. Multiple contiguous axial images obtained through the chest using 80 cc Isovue 370 contrast and PE protocol. Comparison: June 21, 2015 Good opacification of the pulmonary arteries to include the lobar and segmental branches. No pulmonary embolus. Heart not enlarged. Aorta is normal in course and caliber. Stable tiny right hilar calcified nodes. No pathologic mediastinal/hilar lymphadenopathy. Lungs again demonstrates mild bilateral dependent atelectasis. Stable mild pulmonary emphysema and right middle/right lower lobe chunky calcified granulomas. No infiltrate or effusion. Bony thorax intact again with remote T7/T8 compression fractures. Limited upper abdomen again demonstrates mild fatty liver. Impression: 1. Continued negative pulmonary embolus. No new/acute cardiopulmonary abnormalities. 2. Again chronic findings including pulmonary emphysema, fatty liver, remote T7/T8 compression fractures, and old granulomatous disease.
== END 2022-07-03 17:43 | disposition home or self-care (01) ==
LOC: ED 14:49
DX: R07.89 Other chest pain (principal); R06.00 Dyspnea, unspecified; I10 Essential (primary) hypertension; E78.5 Hyperlipidemia, unspecified; Z79.02 Long term (current) use of antithrombotics/antiplatelets; Z79.891 Long term (current) use of opiate analgesic; Z79.899 Other long term (current) drug therapy; Z72.0 Tobacco use
CPT/HCPCS: 36415; 71260; 80053; 83880; 85025; 96374; 99284; J2060

== ENCOUNTER 2023-03-29 13:51 | Emergency (ER) | payer OTHER ==
[2023-03-29 13:59] VITALS: RESP 18; TEMP 97
--- NOTE | 2023-03-29 13:59 | ERPHSYRPT ---
- History of Present Illness Time Seen by Provider: 03/29/23 13:59 Source: patient Exam Limitations: no limitations Physician History: This a 48-year-old right-handed, white male patient of Dr. Mcghee who complains of left elbow pain after lifting and pushing up a heavy object. The pain sudden and there is some popping sensation. Patient has full range of motion on examination. Patient is on Suboxone. He was told that he could receive dose of narcotics by his pain specialist. Patient has history of gastroesophageal reflux disease, hypertension, COPD/asthma, Plavix medication, hyperlipidemia, seizure disorder, degenerative disc disease and osteoarthritis, anxiety, panic disorder and schizophrenia. He also has a history of gout. Occurred: this morning Method of Injury: other (Lifting and pulling) Quality: aching Severity of Pain-Max: mild (To moderate) Severity of Pain-Current: mild (To moderate) Modifying Factors: Improves With: movement Associated Symptoms: none Allergies/Adverse Reactions: Penicillins Allergy (Verified 03/29/23 13:59) promethazine HCl [From Phenergan] Allergy (Verified 03/29/23 13:59) cyclobenzaprine HCl [From Flexeril] Adverse Reaction (Mild, Verified 03/29/23 13:59) just cant take naproxen Adverse Reaction (Mild, Verified 03/29/23 13:59) ulcer prochlorperazine edisylate [From Compazine] Adverse Reaction (Mild, Verified 03/29/23 13:59) nervousness prochlorperazine maleate [From Compazine] Adverse Reaction (Mild, Verified 03/29/23 13:59) nervousness Home Medications: Metoprolol Tartrate 25 mg [Lopressor 25MG Tab] 100 mg PO BID 07/04/14 [History] Gabapentin 800 mg PO QID 06/21/15 [History] Dicyclomine HCl 20 mg [Bentyl 20 mg] 1 tab PO QID 08/16/19 [History] Clopidogrel Bisulfate [PLAVIX 75 MG Tablet] 75 mg PO DAILY 07/09/20 [History] Aspirin EC 81 mg [Ecotrin 81 mg] 81 mg PO DAILY 07/03/22 [History] Buprenorphine HCl/Naloxone HCl [Buprenorphine-Nalox 8-2 mg Tab] 2 tab SL DAILY 07/03/22 [History] Meloxicam 15 mg [Meloxicam 15 MG] 15 mg PO DAILY 07/03/22 [History] Montelukast Sodium 10 mg [Singulair 10 MG] 10 mg PO DAILY 07/03/22 [History] Omeprazole 20 mg PO BID 07/03/22 [History] cilostazoL [Cilostazol] 50 mg PO BID 07/03/22 [History] Allopurinol 300 mg [Zyloprim 300 mg] 1 ea DAILY 03/29/23 [History] Dexlansoprazole [Dexilant] 60 mg PO DAILY 03/29/23 [History] Hx Tetanus, Diphtheria Vaccination/Date Given: No Hx Influenza Vaccination/Date Given: No Hx Pneumococcal Vaccination/Date Given: No Travel Risk - International Travel Have you traveled outside of the country in past 3 weeks: No - Coronavirus Screening Are you exhibiting any of the following symptoms?: No Close contact with a COVID-19 positive Pt in past 14-21 Days: No - Vaccine Status Have you recieved a Covid-19 vaccination: No - Review of Systems Constitutional: No Symptoms Eyes: No Symptoms Ears, Nose, & Throat: No Symptoms Respiratory: No Symptoms Cardiac: No Symptoms Abdominal/Gastrointestinal: No Symptoms Genitourinary Symptoms: No Symptoms Musculoskeletal: Injury (Right elbow), Joint Pain (Right elbow) Skin: No Symptoms Neurological: No Symptoms Psychological: No Symptoms Endocrine: No Symptoms Hematologic/Lymphatic: No Symptoms Immunological/Allergic: No Symptoms All Other Systems: Reviewed and Negative - Past Medical History Pertinent Past Medical History: Yes Neurological History: Seizures ENT History: No Pertinent History Cardiac History: High Cholesterol, Hypertension Respiratory History: Asthma, COPD Endocrine Medical History: Other Musculoskeletal History: Degenerative Disk Disease, Osteoarthritis GI Medical History: Colitis, GERD, Ulcer History: No Pertinent History Psycho-Social History: Anxiety, Depression, Panic Disorder, Other Male Reproductive Disorders: No Pertinent History Other Medical History: FATTY LIVER DISEASE, SCHIZOPHRENIA, DEPRESSION, ANXIETY. SX HX 2 SURGERIES RIGHT SHOULDER AND MULTIPLE DISLOCATIONS RIGHT SHOULDER. MOST RECENT SURGERY 2006. HX OF 2 SURGERIES LEFT LEG DUE TO BLOOD CLOTS (HAS CADAVER VEIN) - Past Surgical History Past Surgical History: Yes Neuro Surgical History: No Pertinent History Cardiac: No Pertinent History Respiratory: No Pertinent History Gastrointestinal: No Pertinent History Genitourinary: No Pertinent History Musculoskeletal: Orthopedic Surgery, Other Male Surgical History: No Pertinent History Other Surgical History: tonsils, right shoulder, thumbs, left leg - Social History Smoking Status: Current every day smoker How long have you smoked: "20 years" Exposure to second hand smoke: Yes Drug Use: none Patient Lives Alone: No Significant Family History: ,  - Nursing Vital Signs Nursing Vital Signs: Initial Vital Signs Temperature 97.0 F 03/29/23 13:58 Pulse Rate 70 03/29/23 13:58 Respiratory Rate 18 03/29/23 13:58 Blood Pressure 118/82 03/29/23 13:58 O2 Sat by Pulse Oximetry 98 03/29/23 13:58 Pain Scale Pain Intensity 8 - Physical Exam General Appearance: no apparent distress, alert, anxiety Eyes, Ears, Nose, Throat Exam: normal ENT inspection, moist mucous membranes Neck Exam: normal inspection, non-tender, supple, full range of motion Cardiovascular/Respiratory Exam: chest non-tender, no respiratory distress Abdominal Exam: non-tender Back Exam: normal inspection, normal range of motion, No CVA tenderness, No vertebral tenderness Shoulder Exam: normal inspection, non-tender, no evidence of injury, normal ROM Elbow/Forearm Exam: normal inspection, no evidence of injury, normal ROM, bone tenderness (Left elbow pain with movement) Wrist Exam: normal inspection, non-tender, no evidence of injury, normal ROM Hand Exam: normal inspection, non-tender, no evidence of injury, normal ROM Neuro/Tendon Exam: normal sensation, normal motor functions, normal tendon functions, responds to pain, no evidence tendon injury Mental Status Exam: alert, oriented x 3, cooperative Skin Exam: normal color, warm, dry SpO2 Interpretation: normal SpO2: 98 O2 Delivery: Room Air - Course Nursing assessment & vital signs reviewed: Yes Ordered Tests: Active Orders 24 hr Category Date Time Status ELBOW (MINIMUM 3 VIEWS) Stat Exams 03/29/23 14:12 Taken Medication Summary Discontinued Medications Generic Name Dose Route Start Last Admin Trade Name Freq PRN Reason Stop Dose Admin Morphine Sulfate 2 mg 03/29/23 14:51 Morphine Sulfate 2 Mg/Ml Inj IM 03/29/23 14:52 STAT ONE Ondansetron HCl 4 mg 03/29/23 14:52 Zofran 4 Mg/Udtablet Orally Disintegrating PO 03/29/23 14:53 STAT ONE Orphenadrine Citrate 60 mg 03/29/23 14:52 Orphenadrine Citrate 60 Mg/2 Ml Vial IM 03/29/23 14:53 STAT ONE - Progress Progress: pain not gone completely Progress Note: 03/29/23 14:58 This patient's medical issue is 1 of low complexity. Level complexity in the work-up performed is based on review of the patient's past medical history, review of the patient's medication list, review the patient's drug allergy list, history of present illness and physical findings on examination. The work-up in this patient includes x-ray of the left elbow. The left elbow x-ray was interpreted by the radiologist and I reviewed the interpretation. There is no evidence of any acute fracture or dislocation. Counseled pt/family regarding: diagnosis, need for follow-up, rad results Medical Desision Making - Diagnostic Testing Diagnostic test were ordered, analyzed, and reviewed by me: Yes Radiological Interpretation: Reviewed by me, Teleradiologist Report - Risk of complications The pt has a mod risk of morbidity or mortality based on: Need for prescription drug management - Departure Departure Disposition: Home Clinical Impression: Strain of left elbow Condition: Stable Critical Care Time: No Referrals: MÓNICA MCGHEE MD [ACTIVE STAFF] - Follow up/PCP as directed Additional Instructions: Ice pack 3 times a day to the left elbow area for the next 48 hours. Wear the sling for comfort. May follow-up in [facility] orthopedic clinic Saturday through Saturday 8 AM to 10 AM. It is a walk-in clinic and you do not need to have an appointment. Take your medication as prescribed. Prescriptions: Prednisone 10 mg [Deltasone 10 mg] 10 mg PO TID #12 tablet Orphenadrine Citrate 100 mg [Norflex 100 MG Tablet] 100 mg PO BID #10 tab
[2023-03-29] MEDS ORDERED: MORPHINE SULFATE 2 MG INJ IM ONE (14:51)
[2023-03-29] MEDS ORDERED: ZOFRAN ODT 4 MG PO ONE (14:52)
[2023-03-29] MEDS ORDERED: Norflex 60 MG/2 ML IM ONE (14:52)
--- NOTE | 2023-03-29 14:56 | XRAY ---
Indication: Pain following injury. Comparison: February 17, 2010 3 portable views left elbow obtained. No bony, articular, or soft tissue abnormalities.
[2023-03-29] MEDS ORDERED: MORPHINE SULFATE 2 MG INJ ONE (15:06)
[2023-03-29] MEDS ORDERED: Norflex 60 MG/2 ML ONE (15:06)
[2023-03-29] MEDS ORDERED: ZOFRAN ODT 4 MG ONE (15:06)
[2023-03-29 15:16] VITALS: BP 124/82; PULSE 80; O2SAT 97
== END 2023-03-29 15:44 | disposition home or self-care (01) ==
LOC: ED 13:51
DX: S53.402A Unspecified sprain of left elbow, initial encounter (principal); X50.0XXA Overexertion from strenuous movement or load, initial encounter; I10 Essential (primary) hypertension; E78.5 Hyperlipidemia, unspecified; Z79.02 Long term (current) use of antithrombotics/antiplatelets; Z79.891 Long term (current) use of opiate analgesic; Z79.52 Long term (current) use of systemic steroids; Z79.899 Other long term (current) drug therapy; Z28.310 Unvaccinated for COVID-19; Z72.0 Tobacco use
CPT/HCPCS: 73080; 96372; 99283; J2270; J2360; Q0162

== ENCOUNTER 2023-04-21 13:37 | Emergency (ER) | payer OTHER ==
[2023-04-21] MEDS ORDERED: DUONEB 0.5-3 MG/3 ml Neb IH ONE ×2 (14:25→14:35)
[2023-04-21 14:33] VITALS: RESP 18; O2SAT 97
[2023-04-21 14:45] LABS: INFLUENZA B NEGATIVE (NEGATIVE); RESPIRATORY SYNCTIAL VIRUS NEGATIVE (NEGATIVE); SARS-CoV-2 Xpert Express NEGATIVE (NEGATIVE)
[2023-04-21 14:46] LABS: INFLUENZA A POSITIVE (NEGATIVE)
--- NOTE | 2023-04-21 15:30 | ERPHSYRPT ---
- History of Present Illness Time Seen by Provider: 04/21/23 13:47 Source: patient Exam Limitations: no limitations Patient Subjective Stated Complaint: C/O cough for the past few day. States he went to the [facility] yesterday and received prescriptions for benzonatate and an inhaler but he feels worse today so he came to the ER. States he lives with his mother who tested positive for [place] about a month ago. Triage Nursing Assessment: Patient ambulated back to ER. He is alert and oriented; anxious. NO SOB. He has a dry, hacking cough but states it is productive at home with green/brown sputum. Lungs clear. CANTOR WNL. Skin tone normal. Physician History: 48-year-old male with a history of chronic pain, peripheral vascular disease presented in the ER with 2 days history of cough congestion, body aches, fatigue tiredness with progressive worsening. Patient was evaluated outpatient yesterday with symptomatic treatment but does not seem working. Patient reports subjective feeling of fever and chills earlier as well. Denies any difficulty breathing. No abdominal pain nausea or vomiting reported. Positive sick contact with other family member mononucleosis. Patient is not tachypneic or tachycardic. Lungs clear to auscultation. X-rays are negative for acute infiltrative process reviewed by me, official report is pending. Is given neb treatment, feeling much better on reevaluation. Patient does have inhaler at home. I have obtained COVID and flu and patient is positive for influenza. Started on Tamiflu. Recommended continue with inhaler and supportive care. Discussed signs symptoms of worsening needing return to ER which he seems understanding. I do not think patient needs any other work-up and is stable for discharge. Allergies/Adverse Reactions: Penicillins Allergy (Verified 04/21/23 13:44) promethazine HCl [From Phenergan] Allergy (Verified 04/21/23 13:44) cyclobenzaprine HCl [From Flexeril] Adverse Reaction (Mild, Verified 04/21/23 13:44) just cant take naproxen Adverse Reaction (Mild, Verified 04/21/23 13:44) ulcer prochlorperazine edisylate [From Compazine] Adverse Reaction (Mild, Verified 04/21/23 13:44) nervousness prochlorperazine maleate [From Compazine] Adverse Reaction (Mild, Verified 04/21/23 13:44) nervousness Home Medications: Metoprolol Tartrate 25 mg [Lopressor 25MG Tab] 100 mg PO BID 07/04/14 [History] Gabapentin 800 mg PO QID 06/21/15 [History] Dicyclomine HCl 20 mg [Bentyl 20 mg] 1 tab PO QID 08/16/19 [History] Clopidogrel Bisulfate [PLAVIX 75 MG Tablet] 75 mg PO DAILY 07/09/20 [History] Aspirin EC 81 mg [Ecotrin 81 mg] 81 mg PO DAILY 07/03/22 [History] Buprenorphine HCl/Naloxone HCl [Buprenorphine-Nalox 8-2 mg Tab] 2 tab SL DAILY 07/03/22 [History] Meloxicam 15 mg [Meloxicam 15 MG] 15 mg PO DAILY 07/03/22 [History] Montelukast Sodium 10 mg [Singulair 10 MG] 10 mg PO DAILY 07/03/22 [History] Omeprazole 20 mg PO BID 07/03/22 [History] cilostazoL [Cilostazol] 50 mg PO BID 07/03/22 [History] Allopurinol 300 mg [Zyloprim 300 mg] 1 ea DAILY 03/29/23 [History] Dexlansoprazole [Dexilant] 60 mg PO DAILY 03/29/23 [History] Hx Tetanus, Diphtheria Vaccination/Date Given: Yes Hx Influenza Vaccination/Date Given: No Hx Pneumococcal Vaccination/Date Given: No Immunizations Up to Date: Yes Travel Risk - International Travel Have you traveled outside of the country in past 3 weeks: No - Coronavirus Screening Are you exhibiting any of the following symptoms?: Yes Symptoms: Cough: New Onset, Shortness of Breath, Headaches/Body Aches/Fatigue Close contact with a COVID-19 positive Pt in past 14-21 Days: No - Vaccine Status Have you recieved a Covid-19 vaccination: No - Review of Systems Constitutional: Fever, Chills, Fatigue, Weakness Eyes: No Symptoms Ears, Nose, & Throat: Nose Congestion, Throat Pain, Throat Swelling Respiratory: Cough Cardiac: No Symptoms Abdominal/Gastrointestinal: No Symptoms Genitourinary Symptoms: No Symptoms Musculoskeletal: Arthralgias, Back Pain, Myalgias Skin: No Symptoms Neurological: Headache Psychological: No Symptoms Hematologic/Lymphatic: No Symptoms - Past Medical History Pertinent Past Medical History: Yes Neurological History: Seizures ENT History: No Pertinent History Cardiac History: High Cholesterol, Hypertension Respiratory History: Asthma, COPD Endocrine Medical History: Other Musculoskeletal History: Degenerative Disk Disease, Osteoarthritis GI Medical History: Colitis, GERD, Ulcer, Other History: No Pertinent History Psycho-Social History: Anxiety, Depression, Panic Disorder, Other Male Reproductive Disorders: No Pertinent History Other Medical History: FATTY LIVER DISEASE, SCHIZOPHRENIA, DVT, MULTIPLE DISLOCATIONS RIGHT SHOULDER. - Past Surgical History Past Surgical History: Yes Neuro Surgical History: No Pertinent History Cardiac: No Pertinent History Respiratory: No Pertinent History Gastrointestinal: No Pertinent History Genitourinary: No Pertinent History Musculoskeletal: Orthopedic Surgery, Other Male Surgical History: No Pertinent History Other Surgical History: right shoulder X 2, thumbs, left leg,. HX OF 2 SURGERIES LEFT LEG DUE TO BLOOD CLOTS (HAS CADAVER VEIN) - Social History Smoking Status: Current every day smoker How long have you smoked: "20 years" Exposure to second hand smoke: Yes Drug Use: none Patient Lives Alone: No Significant Family History: ,  - Nursing Vital Signs Nursing Vital Signs: Initial Vital Signs Respiratory Rate 20 04/21/23 13:38 O2 Sat by Pulse Oximetry 94 L 04/21/23 13:38 Pain Scale Pain Intensity 6 - Physical Exam General Appearance: no apparent distress, alert Eye Exam: PERRL/EOMI Ears, Nose, Throat Exam: moist mucous membranes, pharyngeal erythema Neck Exam: normal inspection, non-tender, supple, full range of motion Respiratory Exam: normal breath sounds, lungs clear Cardiovascular Exam: regular rate/rhythm, normal heart sounds Back Exam: normal inspection, normal range of motion Extremity Exam: normal inspection, normal range of motion Neurologic Exam: alert, oriented x 3, cooperative, job service consultant II-XII nml as tested Skin Exam: normal color SpO2 Interpretation: normal SpO2: 97 O2 Delivery: Room Air Ordered Tests: Active Orders 24 hr Category Date Time Status CHEST 1 VIEW (PORTABLE) Stat Exams 04/21/23 13:45 Taken MONO SCREEN Stat Lab 04/21/23 14:00 Completed Respiratory Therapy Assessment DAILY RT 04/21/23 14:29 Active Medication Summary Discontinued Medications Generic Name Dose Route Start Last Admin Trade Name Freq PRN Reason Stop Dose Admin Albuterol/Ipratropium Confirm 04/21/23 14:25 Ipratropium/Albuterol Sulfate 3 Ml Ampul.Neb Administered 04/21/23 14:26 Dose 3 ml IH .STK-MED ONE Albuterol/Ipratropium 3 ml 04/21/23 14:35 04/21/23 14:25 Ipratropium/Albuterol Sulfate 3 Ml Ampul.Neb IH 04/21/23 14:36 3 ml STAT ONE Administration Lab/Rad Data: Laboratory Results 04/21/23 04/21/23 Range/Units 14:00 14:00 Monoscreen NEGATIVE (NEGATIVE) Influenza Type A Ag POSITIVE (NEGATIVE) Influenza Type B Ag NEGATIVE (NEGATIVE) RSV (PCR) NEGATIVE (NEGATIVE) SARS-CoV-2 (PCR) NEGATIVE (NEGATIVE) - Progress Progress: improved Air Movement: good Progress Note: 04/21/23 15:28 48-year-old male with a history of chronic pain, peripheral vascular disease presented in the ER with 2 days history of cough congestion, body aches, fatigue tiredness with progressive worsening. Patient was evaluated outpatient yesterday with symptomatic treatment but does not seem working. Patient reports subjective feeling of fever and chills earlier as well. Denies any difficulty breathing. No abdominal pain nausea or vomiting reported. Positive sick contact with other family member mononucleosis. Patient is not tachypneic or tachycardic. Lungs clear to auscultation. X-rays are negative for acute infiltrative process reviewed by me, official report is pending. Is given neb treatment, feeling much better on reevaluation. Patient does have inhaler at home. I have obtained COVID and flu and patient is positive for influenza. Started on Tamiflu. Recommended continue with inhaler and supportive care. Discussed signs symptoms of worsening needing return to ER which he seems understanding. I do not think patient needs any other work-up and is stable for discharge. Blood Culture(s) Obtained: No Antibiotics given: No Counseled pt/family regarding: lab results, diagnosis, need for follow-up, rad results, smoking cessation Medical Desision Making - Diagnostic Testing Diagnostic test were ordered, analyzed, and reviewed by me: Yes Radiological Interpretation: Interpreted by me, Reviewed by me - Risk of complications The pt has a mod risk of morbidity or mortality based on: Need for prescription drug management - Departure Departure Disposition: Home Clinical Impression: Influenza A Condition: Stable Critical Care Time: No Referrals: CRISTY CALVO MD [Primary Care Provider] - Follow up with PCP 1 day Instructions: Flu, Adult (DC) Additional Instructions: Take Tylenol/ibuprofen as needed for symptomatic relief. Use inhaler as needed for cough. Return to ER for worsening cough congestion, persistent high-grade fever chills etc. Prescriptions: Prednisone 20 mg [Deltasone 20 mg] 40 mg PO DAILY 5 Days #10 tablet Oseltamivir 75 mg [Tamiflu 75MG Capsule] 75 mg PO BID #10 cap
[2023-04-21 15:46] VITALS: BP 107/70; PULSE 70
--- NOTE | 2023-04-21 18:04 | XRAY ---
Indication: Cough and short of breath. Comparison: July 03, 2022 Portable apical lordotic chest again hyperinflated and clear with incidental right midlung calcified granuloma. Heart not enlarged. Bony thorax intact. No new/acute findings.
== END 2023-04-21 15:48 | disposition home or self-care (01) ==
LOC: ED 13:37
DX: J10.1 Influenza due to other identified influenza virus with other respiratory manifestations (principal); R05.1 Acute cough; M79.10 Myalgia, unspecified site; R53.83 Other fatigue; E78.5 Hyperlipidemia, unspecified; I10 Essential (primary) hypertension; Z79.52 Long term (current) use of systemic steroids; Z79.02 Long term (current) use of antithrombotics/antiplatelets; Z79.891 Long term (current) use of opiate analgesic; Z79.899 Other long term (current) drug therapy; Z28.310 Unvaccinated for COVID-19; Z72.0 Tobacco use
CPT/HCPCS: 0241U; 36415; 71045; 86308; 94640; 99283; A9270-GY